=== PATIENT | female | born 2005 | race Caucasian/White ===

== ENCOUNTER → 2024-07-30 | Outpatient (CLI) | payer OTHER, SELFPAY ==
[2024-07-30 12:07] LABS: Absolute Lymphocyte Count 1.69 X10^3/uL (0.83-4.51); Absolute Neutrophil Count 9.4 X10^3/uL (2.0-7.7); Basophil# 0.06 X10^3/uL; Basophil% 0.5 % (0-1); Eosinophil# 0.02 X10^3/uL; Eosinophils% 0.2 % (0-5); Hematocrit 37.8 % (37-47); Hemoglobin 12.3 g/dL (12.0-15.0); Lymphocyte # 1.69 X10^3/ul (0.83-4.51); Lymphocyte % 14.2 % (19-41); Mean Corp Hgb Conc 32.5 g/dL (32-36); Mean Corpuscular Hgb 30.1 pg (27.0-32.0); Mean Corpuscular Volume 92.4 fL (81-99); Mean Platelet Vol. 10.3 fl (6.2-12.0); Monocyte# 0.63 X10^3/uL; Monocyte% 5.3 % (0-10); NRBC Flagged by Analyzer 0 % (0-5); Neutrophil # 9.37 X10^3/uL (2.7-7.7); Platelet Count 275 K/mm3 (150-450); RBC Distribution Width CV 13.9 % (11.6-14.6); RBC Distribution Width SD 46.9 fl (35.1-43.9); Red Blood Count 4.09 M/mm3 (4.2-5.4); White Blood Count 11.9 K/mm3 (4.4-11.0)
[2024-07-30 12:28] LABS: Erythrocyte Sedimentation Rate 1 mm/hr (0-30)
[2024-07-30 12:44] LABS: ALB/GLOB Ratio 1.1 RATIO (0.9-2.4); AST(SGOT) 15 U/L (15-37); Alanine Aminotransfer ALT/SGPT 25 U/L (13-56); Albumin, Serum 3.9 g/dL (3.2-5.0); Alkaline Phosphatase 61 U/L (45-117); Anion Gap 4 (5-15); BUN 11 mg/dL (7-18); BUN/Creat Ratio 17.3 RATIO (10-20); CRP < 2.90 mg/L (0.0-3.0); Calcium,Total 8.5 mg/dL (8.5-10.1); Chloride 110 mmol/L (98-107); Cholesterol 177 mg/dL (200); Creatinine, Serum 0.64 mg/dL (0.55-1.02); EST Glomerular Filtration Rate 126 mL/min (>60); Est Glom Filt Rate - Afr Amer 152 mL/min (>60); Globulin 3.4 g/dL (2.2-4.2); Glucose 90 mg/dL (74-106); High Density Lipoprotein 69 mg/dL; Potassium 3.5 mmol/L (3.5-5.1); Protein, Total 7.3 g/dL (6.4-8.2); Rheumatoid Factor < 10.0 IU/mL (<15); Sodium Level 139 mmol/L (136-145); T4 Free Direct 0.84 ng/dL (0.76-1.46); Thyroid Stim Hormone (TSH) 0.791 uIU/mL (0.358-3.740); Triglycerides 53 mg/dL; Very Low Density Lipoprotein 11 mg/dL (5-40)
[2024-08-01 08:27] LABS: Vitamin B12 359 pg/mL (211-911); Vitamin D,25 Hydroxy 24.8 ng/mL
[2024-08-01 13:08] LABS: ANTINUCLEAR ANTIBODIES DIRECT Negative (Negative); CCP IgG Antibodies 6 units (0-19)
== END | disposition home or self-care (01) ==
PROVIDERS: PCP Nurse Practitioner Family; Referring Provider Nurse Practitioner Family; Visit Provider Nurse Practitioner Family
DX: Z00.01 Encounter for general adult medical examination with abnormal findings (principal); R53.83 Other fatigue; R21 Rash and other nonspecific skin eruption; M25.50 Pain in unspecified joint
CPT/HCPCS: 36415; 80053; 80061; 82306; 82607; 84439; 84443; 85025; 85652; 86038; 86140; 86200; 86225; 86235; 86431

== ENCOUNTER → 2024-08-24 | Outpatient (CLI) | payer OTHER, SELFPAY | END | disposition home or self-care (01) | LOC: LABSPEC 09:30 | PROVIDERS: PCP Nurse Practitioner Family; Visit Provider Nurse Practitioner Family | DX: N39.0 Urinary tract infection, site not specified (principal); Z20.9 Contact with and (suspected) exposure to unspecified communicable disease | CPT/HCPCS: 87086; 87088; 87491; 87591 ==